=== PATIENT | male | born 2000 | race Caucasian/White ===

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

== ENCOUNTER → 2021-03-08 12:10 | Outpatient (CLI) | payer MEDICAID, SELFPAY ==
[2021-03-08 14:10] LABS: Sodium 150 mmol/L (136-145)
== END ==
PROVIDERS: Visit Provider Pediatrics
DX: E23.2 Diabetes insipidus (principal)
CPT/HCPCS: 36415; 84295

== ENCOUNTER → 2021-03-11 14:24 | Outpatient (CLI) | payer MEDICAID, SELFPAY ==
[2021-03-11 15:41] LABS: Sodium 143 mmol/L (136-145)
== END ==
PROVIDERS: Visit Provider Pediatrics
DX: E23.2 Diabetes insipidus (principal)
CPT/HCPCS: 36415; 84295